=== PATIENT | male | born 1980 | race Caucasian/White ===

== ENCOUNTER 2018-06-16 22:09 | Emergency (ER) | payer OTHER ==
[~2018-06-16] VITALS: Ht 177.8 cm; Wt 72.6 kg
[2018-06-16] MEDS ORDERED: BUPIVACAINE MPF 0.5% 30 ML VIAL. SQ ONE (22:15)
[2018-06-16] MEDS ORDERED: MORPHINE SULFATE 10 MG/ML SYRINGE. SQ ONE (22:15)
[2018-06-16] MEDS ORDERED: LIDOCAINE 2% 20 ML VIAL. IJ ONE (22:15)
[2018-06-16] MEDS ORDERED: cefTRIAXone IM 1 GM VIAL IM ONE (22:15)
[2018-06-16] MEDS ORDERED: cefTRIAXone SODIUM 1 GM VIAL ONE (22:25)
[2018-06-16] MEDS ORDERED: BUPIVAC MPF-EPI 0.5%-1:200000 30 ML VIAL. ONE (22:25)
[2018-06-16] MEDS ORDERED: LIDOCAINE 1% Multi-Dose 20 ML VIAL. ONE (22:26)
[2018-06-16] MEDS ORDERED: MUPIROCIN 2% TOPICAL OINTMENT 22GM TUBE. TP ONE (23:06)
[2018-06-16 23:21] VITALS: BP 148/87
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
[2018-06-16] MEDS ORDERED: CEPH-264 PO (23:43)
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
== END 2018-06-16 23:55 | disposition home or self-care (01) ==
LOC: ER 22:09 → EEVIPCON 22:09 → ER 23:55
DX: S51.812A Laceration without foreign body of left forearm, initial encounter (principal); W26.8XXA Contact with other sharp object(s), not elsewhere classified, initial encounter; Y93.89 Activity, other specified; Y92.89 Other specified places as the place of occurrence of the external cause; Y99.0 Civilian activity done for income or pay
CPT/HCPCS: 12004; 73090; 96372; 99284; J0696; J2270; J3490; J2001